=== PATIENT | female | born 1955 | race Caucasian/White ===

== ENCOUNTER → 2016-10-06 | Outpatient (CLI) | payer MEDICAID ==
[2016-06-10 04:22] VITALS: BP 142/75
--- NOTE | 2016-10-06 14:31 | MRI ---
STUDY: MRI OF THE BRAIN WITHOUT GADOLINIUM HISTORY: Bilateral headaches. Technique: Multiplanar multi-sequence MRI of the brain was obtained utilizing standard departmental protocol. Sagittal and axial T1, axial T2, FLAIR, diffusion (DWI/ADC) images through the brain were performed. Comparison: Head CT from April 29, 2016. Findings: The sulci, cisterns and ventricles are age appropriate. There are a few scattered foci of T2 prolong ation in the periventricular and subcortical white matter of both hemispheres. This is a nonspecific finding which likely represents mild microangiopathic change in a patient of this age. There is no evidence of acute territorial infarction, hemorrhage, mass, mass effect, or midline shif t. There are no abnormal intra-axial or extra-axial fluid collections. The major intracranial vascu lar flow voids appear intact. The left vertebral artery appears dominant. IMPRESSION: 1. No evidence of acute intracranial abnormality. 2. Mild nonspecific white matter change. Reported By:
== END ==
LOC: RAD 13:13
PROVIDERS: ATTEND Psychiatry & Neurology Neurology
DX: R51 Headache (principal)
CPT/HCPCS: 70551

== ENCOUNTER → 2016-10-31 | Outpatient (CLI) | payer MEDICAID ==
[2016-06-10 04:22] VITALS: BP 142/75
== END ==
LOC: RT 11:20
PROVIDERS: ATTEND Psychiatry & Neurology Neurology
DX: R55 Syncope and collapse (principal)
CPT/HCPCS: 93010; 95819

== ENCOUNTER 2017-10-03 09:00 | Day surgery (SDC) | payer MEDICAID ==
[2017-10-03] MEDS ORDERED: TETRACAINE 0.5% OPHTH 1 DOSE AFFEYE ONE ×3 (09:05→11:36)
[2017-10-03] MEDS ORDERED: VIGAMOX 0.5% OPHTH 1 DOSE AFFEYE ONE ×5 (09:06→11:58)
[2017-10-03] MEDS ORDERED: PROLENSA OPHTH 1 DOSE AFFEYE ONE (09:17)
[2017-10-03] MEDS ORDERED: ALPHAGAN-P OPHTH 1 DOSE AFFEYE ONE (09:18)
[2017-10-03] MEDS ORDERED: CYCLOGYL 1% OPHTH 1 DOSE OP ONE ×3 (09:19→09:25)
[2017-10-03] MEDS ORDERED: MYDRIACIL OPHTH 1 DOSE AFFEYE ONE ×4 (09:19→10:35)
[2017-10-03] MEDS ORDERED: AK-DILATE 2.5% OPHTH 1 DOSE OP ONE ×3 (09:19→09:25)
[2017-10-03] MEDS ORDERED: NS 500 ML IV 500 ML IV ONE (09:41)
[2017-10-03] MEDS ORDERED: AK-DILATE 2.5% OPHTH 1 DOSE AFFEYE ONE (10:35)
[2017-10-03] MEDS ORDERED: CYCLOGYL 1% OPHTH 1 DOSE AFFEYE ONE (10:35)
[2017-10-03] MEDS ORDERED: NORMODYNE INJ 20 MG VIAL ONE (10:50)
[2017-10-03] MEDS ORDERED: NORMODYNE INJ 20 MG VIAL IVP ONE (10:55)
[2017-10-03] MEDS ORDERED: BETADINE OPHTH SOLN 5% EACHEYE ONE (11:30)
[2017-10-03] MEDS ORDERED: ADRENALINE CHL INJ IJ ONE (11:36)
[2017-10-03] MEDS ORDERED: XYLOCAINE-MPF 1% IJ ONE (11:36)
[2017-10-03] MEDS ORDERED: DUOVISC IO ONE (11:36)
[2017-10-03] MEDS ORDERED: BSS OPHTH (PLAIN) 500 ML with VANCOMYCIN HCL 500 MG VIAL 25 MG, ADRENALINE CHL INJ 1 MG IR ONE ×3 (11:36)
[2017-10-03 12:20] VITALS: BP 154/81
[2017-10-03] MEDS ORDERED: DIPRIVAN VIAL ONE (15:43)
== END 2017-10-03 12:20 | disposition home or self-care (01) ==
LOC: SURG1 09:00
PROVIDERS: ATTEND Ophthalmology
PROC: 08RK3JZ Replacement of Left Lens with Synthetic Substitute, Percutaneous Approach (ICD-10-PCS; principal; 2017-10-03 16:30)
PROC: 08DK3ZZ Extraction of Left Lens, Percutaneous Approach (ICD-10-PCS; principal; 2017-10-03 16:30)
DX: H25.12 Age-related nuclear cataract, left eye (principal); H25.042 Posterior subcapsular polar age-related cataract, left eye
CPT/HCPCS: A4217; J0170; J3370; J3490

== ENCOUNTER 2017-10-17 07:44 | Day surgery (SDC) | payer MEDICAID ==
[~2017-10-17 07:44] MED LIST: TETRACAINE 0.5% OPHTH 1 DOSE AFFEYE ONE; VIGAMOX 0.5% OPHTH 1 DOSE AFFEYE ONE
[2017-10-17] MEDS ORDERED: VIGAMOX 0.5% OPHTH 1 DOSE AFFEYE ONE ×4 (07:45→10:23)
[2017-10-17] MEDS ORDERED: PROLENSA OPHTH 1 DOSE AFFEYE ONE (07:46)
[2017-10-17] MEDS ORDERED: NS 500 ML IV 500 ML IV ONE (07:46)
[2017-10-17] MEDS ORDERED: ALPHAGAN-P OPHTH 1 DOSE AFFEYE ONE (07:48)
[2017-10-17] MEDS ORDERED: AK-DILATE 2.5% OPHTH 1 DOSE OP ONE ×5 (07:50→08:00)
[2017-10-17] MEDS ORDERED: MYDRIACIL OPHTH 1 DOSE AFFEYE ONE ×5 (07:50→08:00)
[2017-10-17] MEDS ORDERED: CYCLOGYL 1% OPHTH 1 DOSE OP ONE ×5 (07:50→08:00)
[2017-10-17] MEDS ORDERED: AK-DILATE 10% OPHTH 1 DOSE AFFEYE ONE (08:52)
[2017-10-17] MEDS ORDERED: BETADINE OPHTH SOLN 5% EACHEYE ONE (09:45)
[2017-10-17] MEDS ORDERED: TETRACAINE 0.5% OPHTH 1 DOSE AFFEYE ONE ×2 (09:45→09:47)
[2017-10-17] MEDS ORDERED: XYLOCAINE-MPF 1% IJ ONE (09:48)
[2017-10-17] MEDS ORDERED: ADRENALINE CHL INJ IJ ONE (09:48)
[2017-10-17] MEDS ORDERED: DUOVISC IO ONE (09:49)
[2017-10-17] MEDS ORDERED: BSS OPHTH (PLAIN) 500 ML with VANCOMYCIN HCL 500 MG VIAL 25 MG, ADRENALINE CHL INJ 1 MG IR ONE ×3 (09:49)
[2017-10-17] MEDS ORDERED: MIOCHOL-E IO ONE (10:05)
[2017-10-17 11:04] VITALS: BP 161/78
== END 2017-10-17 10:43 | disposition home or self-care (01) ==
LOC: SURG1 07:44
PROVIDERS: ATTEND Ophthalmology
PROC: 08RJ3JZ Replacement of Right Lens with Synthetic Substitute, Percutaneous Approach (ICD-10-PCS; principal; 2017-10-17 09:45)
PROC: 08DJ3ZZ Extraction of Right Lens, Percutaneous Approach (ICD-10-PCS; principal; 2017-10-17 09:45)
DX: H25.11 Age-related nuclear cataract, right eye (principal); H25.011 Cortical age-related cataract, right eye; H25.041 Posterior subcapsular polar age-related cataract, right eye
CPT/HCPCS: A4217; J0170; J3370